=== PATIENT | male | born 1970 | race Caucasian/White ===

== ENCOUNTER → 2023-01-07 | Outpatient (CLI) | payer OTHER ==
--- NOTE | 2023-01-07 11:24 | XR ---
EXAMINATION TYPE: XR Hip Bilateral Complete DATE OF EXAM: 01/07/2023 COMPARISON: NONE HISTORY: Pain TECHNIQUE: 2 views submitted FINDINGS: There is no evidence of erosive change or acute fracture. Postsurgical changes seen involving the fem oral neck bilaterally with orthopedic surgical screws well situated within the respective femoral hea d. There is mild bilateral hip arthropathy. Benign-appearing cystic change involving the lateral conor in of the femoral head bilaterally. Changes of femoral acetabular impingement. IMPRESSION: 1. No acute process. There is postsurgical change and bilateral hip arthropathy correlate for femoral acetabular impingement.
== END | disposition home or self-care (01) ==
LOC: RADXRMAIN 10:40
PROVIDERS: ATTEND Family Medicine
DX: M16.0 Bilateral primary osteoarthritis of hip (principal)
CPT/HCPCS: 73521